=== PATIENT | male | born 1975 ===

== ENCOUNTER 2020-04-14 14:49 | Outpatient (CLI) | payer OTHER | END 2020-04-14 15:00 | disposition home or self-care (01) | LOC: PPH VACUNA 14:49 | DX: Z23 Encounter for immunization (principal) ==

== ENCOUNTER 2020-12-25 09:25 | Outpatient (CLI) | payer OTHER | END 2020-12-25 09:39 | disposition home or self-care (01) | LOC: LAB 09:25 | PROVIDERS: ATTEND Emergency Medicine Pediatric Emergency Medicine | DX: Z03.818 Encounter for observation for suspected exposure to other biological agents ruled out (principal) ==

== ENCOUNTER → 2021-01-01 | Outpatient (CLI) | payer OTHER | END | disposition home or self-care (01) | LOC: ASH CLINIC 13:00 | PROVIDERS: ATTEND Internal Medicine Pulmonary Disease | DX: Z23 Encounter for immunization (principal); U07.1 COVID-19 ==

== ENCOUNTER 2021-05-19 08:00 | Outpatient (CLI) | payer OTHER | END 2021-05-19 08:30 | disposition home or self-care (01) | LOC: PPH VACUNA 08:00 | PROVIDERS: ATTEND Emergency Medicine Pediatric Emergency Medicine | DX: Z23 Encounter for immunization (principal) ==

== ENCOUNTER → 2023-03-17 09:09 | Outpatient (CLI) | payer OTHER | END | disposition home or self-care (01) | LOC: LAB 09:09 → RAD 09:09 | PROVIDERS: ATTEND Obstetrics & Gynecology | DX: R05.8 Other specified cough (principal) ==